=== PATIENT | female | born 1955 | race Two or more races ===

== ENCOUNTER 2020-04-28 19:39 | Inpatient (IN) | payer MEDICAID ==
[~2020-04-28] VITALS: Ht 170.2 cm; Wt 87.7 kg
[2020-04-28] MEDS ORDERED: ACETAMINOPHEN 325 MG TAB PO ONE (20:00)
[2020-04-28] MEDS ORDERED: DOXYCYCLINE 100MG/250ML 250 ML IV ONE (20:00)
[2020-04-28] MEDS ORDERED: DexAMETHasone SOD PHOS 10MG/1ML VIAL INJ IV ONE (20:00)
[2020-04-28] MEDS ORDERED: SODIUM CHLORIDE 0.9% 500 ML IV ONE (20:15)
[2020-04-28 21:20] LABS: Basophils # (auto) 0 10 ^3/uL (0-0.2); Basophils % (auto) 0.2 % (0.0-2.0); Eosinophils # (auto) 0 10 ^3/uL (0-0.8); Eosinophils % (auto) 0.1 % (0.0-7.0); Hematocrit 36.2 % (36.0-46.0); Hemoglobin 12.7 g/dL (12.2-16.2); Lymphocytes # (auto) 0.9 10 ^3/uL (0.4-5.4); Lymphocytes % (auto) 9.4 % (10.0-50.0); Mean Corpuscular Hemoglobin 30.9 pg (28.0-32.0); Mean Corpuscular Volume 88.3 fL (80.0-100.0); Monocytes # (auto) 0.5 10 ^3/uL (0-1.3); Monocytes % (auto) 5.4 % (0.0-12.0); Neutrophils % (auto) 84.9 % (37.0-80.0); Red Cell Distribution Width 12.5 % (11.8-14.3); White Blood Cell 9.4 10^3/uL (4.4-10.8)
[2020-04-28 21:31] LABS: Chloride 101 mmol/L (98-107); Potassium 4.1 mmol/L (3.5-5.1); Sodium 134 mmol/L (136-145)
[2020-04-28 21:49] LABS: Alanine Aminotransferase 30 U/L (13-56); Albumin 2.8 g/dL (3.4-5.0); Alkaline Phosphatase 93 U/L (45-117); Anion Gap 7 (5-15); Aspartate Aminotransferase 23 U/L (15-37); BUN/Creatinine Ratio 17.4; Bilirubin, Total 0.3 mg/dL (0.2-1.0); Blood Urea Nitrogen 16 mg/dL (7-18); Calcium 8.5 mg/dL (8.5-10.1); Carbon Dioxide 26 mmol/L (21-32); GFR African American 79 mL/min; GFR Non-African American 65 mL/min; Glucose 180 mg/dL (74-106); Total Protein 7.8 g/dL (6.4-8.2)
[2020-04-28 21:57] LABS: INR 0.96 (0.9-1.15); Partial Thromboplastin Time 32.3 sec (23.0-31.2)
[2020-04-29] MEDS ORDERED: MORPHINE SULFATE INJECTION 2 MG/ML SYRG IV PRN (01:00)
[2020-04-29] MEDS ORDERED: ACETAMINOPHEN 500 MG TAB PO PRN (01:00)
[2020-04-29] MEDS ORDERED: NITROGLYCERIN 0.4 MG SL TAB SL PRN (01:00)
[2020-04-29] MEDS ORDERED: ONDANSETRON HCL 4 MG/2 ML VIAL IV PRN (01:00)
[2020-04-29] MEDS ORDERED: DEXTROSE (50%) 50ML SYRG IV PRN (01:00)
[2020-04-29 01:35] LABS: Magnesium 2.1 mg/dL (1.6-2.6)
[2020-04-29 01:46] LABS: CRP High Sensitivity 17.6 mg/dL (< 0.3)
[2020-04-29] MEDS: ACCU-CHEK COMFORT CURVE STRIP VI SCH ×4 (06:34→21:30)
[2020-04-29] MEDS: InsuLIN REG 1unit/0.01ml Soln (100units/ml) SC SCH ×4 (06:35→21:30)
[2020-04-29] MEDS ORDERED: LOSARTAN POTASSIUM 50 MG TAB PO SCH (10:00)
[2020-04-29] MEDS: DOXYCYCLINE 100MG/250ML 250 ML IV SCH ×2 (10:12→22:00)
[2020-04-29] MEDS: DexAMETHasone SOD PHOS 10MG/1ML VIAL INJ IV SCH (10:12)
[2020-04-29] MEDS: ZINC SULFATE 220mg CAP or TAB PO SCH (10:12)
[2020-04-29] MEDS: CHOLECALCIFEROL (VITD3) 2,000 UNIT CAP/TAB PO SCH (10:12)
[2020-04-29] MEDS: FAMOTIDINE 20 MG TAB PO SCH ×2 (10:12→22:00)
[2020-04-29] MEDS: ASCORBIC ACID 1,000 MG TAB PO SCH (10:12)
[2020-04-29] MEDS: ENOXAPARIN SOD 40 MG/0.4 ML SYRINGE SC SCH ×2 (10:13→22:00)
[2020-04-29] MEDS ORDERED: REMDESIVIR PER PHARMACY 0 ML IV SCH (14:30)
[2020-04-29] MEDS ORDERED: FUROSEMIDE 20 MG/2 ML VIAL IV ONE (14:30)
[2020-04-29] MEDS ORDERED: POTASSIUM CHL 10 Meq TABLET PO ONE (14:30)
[2020-04-29 22:00] VITALS: BP 139/76
[2020-04-29] MEDS ORDERED: ATORVASTATIN 20 MG TAB PO SCH (22:00)
[2020-04-29] MEDS ORDERED: LOSA-39 PO (23:33)
[2020-04-29] MEDS ORDERED: CARB100C3 PO (23:33)
[2020-04-29] MEDS ORDERED: GLIP5TAB12 PO (23:33)
[2020-04-30] VITALS: BP 139/76
[2020-04-30] MEDS: ACCU-CHEK COMFORT CURVE STRIP VI SCH ×4 (06:11→21:46)
[2020-04-30] MEDS: InsuLIN REG 1unit/0.01ml Soln (100units/ml) SC SCH ×4 (06:17→21:47)
[2020-04-30 08:00] VITALS: BP 133/67
[2020-04-30 08:42] LABS: Basophils # (auto) 0 10 ^3/uL (0-0.2); Basophils % (auto) 0.1 % (0.0-2.0); Eosinophils # (auto) 0.1 10 ^3/uL (0-0.8); Eosinophils % (auto) 0.8 % (0.0-7.0); Hematocrit 34.8 % (36.0-46.0); Hemoglobin 12.3 g/dL (12.2-16.2); Lymphocytes # (auto) 1.4 10 ^3/uL (0.4-5.4); Lymphocytes % (auto) 18.6 % (10.0-50.0); Mean Corpuscular Hemoglobin 31.4 pg (28.0-32.0); Mean Corpuscular Hgb Conc. 35.3 g/dL (32.0-36.0); Mean Corpuscular Volume 88.7 fL (80.0-100.0); Monocytes # (auto) 0.6 10 ^3/uL (0-1.3); Monocytes % (auto) 7.5 % (0.0-12.0); Neutrophils # (auto) 5.4 10 ^3/uL (1.6-8.6); Nucleated Red Blood Cells % 0.1 %; Red Blood Cells 3.92 10^6/uL (4.0-5.20); Red Cell Distribution Width 12.3 % (11.8-14.3); White Blood Cell 7.4 10^3/uL (4.4-10.8)
[2020-04-30 09:15] LABS: Potassium 4.1 mmol/L (3.5-5.1)
[2020-04-30 09:25] LABS: Albumin 2.5 g/dL (3.4-5.0); BUN/Creatinine Ratio 36.4; Bilirubin, Total 0.2 mg/dL (0.2-1.0); Calcium 8.6 mg/dL (8.5-10.1); Total Protein 7.3 g/dL (6.4-8.2)
[2020-04-30] MEDS: ZINC SULFATE 220mg CAP or TAB PO SCH (09:34)
[2020-04-30] MEDS: DOXYCYCLINE 100MG/250ML 250 ML IV SCH ×2 (09:34→21:46)
[2020-04-30] MEDS: FUROSEMIDE 20 MG/2 ML VIAL IV SCH (09:34)
[2020-04-30] MEDS: DexAMETHasone SOD PHOS 10MG/1ML VIAL INJ IV SCH (09:34)
[2020-04-30] MEDS: CHOLECALCIFEROL (VITD3) 2,000 UNIT CAP/TAB PO SCH (09:35)
[2020-04-30] MEDS: ENOXAPARIN SOD 40 MG/0.4 ML SYRINGE SC SCH ×2 (09:35→21:46)
[2020-04-30] MEDS: POTASSIUM CHL 10 Meq TABLET PO SCH (09:35)
[2020-04-30] MEDS: ASCORBIC ACID 1,000 MG TAB PO SCH (09:35)
[2020-04-30] MEDS: FAMOTIDINE 20 MG TAB PO SCH ×2 (09:35→21:46)
[2020-04-30 11:05] LABS: Cholesterol 189 mg/dL (< 200); HDL Cholesterol 56 mg/dL (40-59); LDL Cholesterol 100 mg/dL (< 100); Triglycerides 217 mg/dL (< 150)
[2020-04-30] MEDS ORDERED: REMDESIVIR 200 MG in NS 210ml LOADING DOSE ADULT IV ONE (15:00)
[2020-04-30 16:00] VITALS: BP 136/70
[2020-04-30] MEDS ORDERED: SODIUM CHLORIDE 0.9% 1,000 ML IV SCH (17:15)
[2020-04-30] MEDS: carBAMazepine 200 MG TAB PO SCH (21:46)
[2020-04-30] MEDS: ATORVASTATIN 20 MG TAB PO SCH (21:46)
[2020-05-01] VITALS: BP 153/80
[2020-05-01] MEDS: TEMAZEPAM 15 MG CAP PO PRN ×2 (00:51→22:20)
[2020-05-01] MEDS: ACCU-CHEK COMFORT CURVE STRIP VI SCH ×4 (06:11→22:20)
[2020-05-01] MEDS: InsuLIN REG 1unit/0.01ml Soln (100units/ml) SC SCH ×4 (06:11→22:23)
[2020-05-01 08:00] VITALS: BP 143/75
[2020-05-01 08:44] LABS: Albumin 2.6 g/dL (3.4-5.0); BUN/Creatinine Ratio 38.2; Calcium 8.9 mg/dL (8.5-10.1)
[2020-05-01 09:13] LABS: Bilirubin, Total 0.3 mg/dL (0.2-1.0); Total Protein 7.3 g/dL (6.4-8.2)
[2020-05-01] MEDS: DexAMETHasone SOD PHOS 10MG/1ML VIAL INJ IV SCH (09:44)
[2020-05-01] MEDS: ASPirin 81 mg TAB PO SCH (09:45)
[2020-05-01] MEDS: ZINC SULFATE 220mg CAP or TAB PO SCH (09:45)
[2020-05-01] MEDS: POTASSIUM CHL 10 Meq TABLET PO SCH (09:45)
[2020-05-01] MEDS: FUROSEMIDE 20 MG/2 ML VIAL IV SCH (09:45)
[2020-05-01] MEDS: DOXYCYCLINE 100MG/250ML 250 ML IV SCH ×2 (09:45→22:19)
[2020-05-01] MEDS: CHOLECALCIFEROL (VITD3) 2,000 UNIT CAP/TAB PO SCH (09:46)
[2020-05-01] MEDS: ASCORBIC ACID 1,000 MG TAB PO SCH (09:46)
[2020-05-01] MEDS: ENOXAPARIN SOD 40 MG/0.4 ML SYRINGE SC SCH ×2 (09:46→22:20)
[2020-05-01] MEDS: FAMOTIDINE 20 MG TAB PO SCH ×2 (09:46→22:19)
[2020-05-01] MEDS: carBAMazepine 200 MG TAB PO SCH ×2 (09:46→22:20)
[2020-05-01] MEDS ORDERED: SALINE 0.65 % NASAL SPRAY 45ML BOTTLE EACHNOSTRI PRN (11:30)
[2020-05-01 16:00] VITALS: BP 127/73
[2020-05-01] MEDS: REMDESIVIR 100 MG in SODIUM CHL 0.9% 250 ML IV SCH (16:09)
[2020-05-01] MEDS: ATORVASTATIN 20 MG TAB PO SCH (22:20)
[2020-05-01] MEDS: INSULIN LANTUS (GLARGINE) 1 /0.01ml (100units/ml) SC SCH (22:27)
[2020-05-02] VITALS: BP 148/78
[2020-05-02] MEDS: ACCU-CHEK COMFORT CURVE STRIP VI SCH ×4 (06:17→22:12)
[2020-05-02] MEDS: InsuLIN REG 1unit/0.01ml Soln (100units/ml) SC SCH ×4 (06:17→22:09)
[2020-05-02 08:00] VITALS: BP 136/77
[2020-05-02 08:28] LABS: Potassium 3.9 mmol/L (3.5-5.1)
[2020-05-02 08:38] LABS: Albumin 2.6 g/dL (3.4-5.0); BUN/Creatinine Ratio 40.7; Calcium 8.8 mg/dL (8.5-10.1)
[2020-05-02 08:41] LABS: Bilirubin, Total 0.2 mg/dL (0.2-1.0); Total Protein 7.1 g/dL (6.4-8.2)
[2020-05-02] MEDS: ALBUTEROL SULF HFA 90MCG INH 200DOSE IN PRN (09:06)
[2020-05-02] MEDS: DexAMETHasone SOD PHOS 10MG/1ML VIAL INJ IV SCH (09:29)
[2020-05-02] MEDS: FUROSEMIDE 20 MG/2 ML VIAL IV SCH (09:30)
[2020-05-02] MEDS: ASPirin 81 mg TAB PO SCH (09:30)
[2020-05-02] MEDS: FAMOTIDINE 20 MG TAB PO SCH ×2 (09:30→22:10)
[2020-05-02] MEDS: ZINC SULFATE 220mg CAP or TAB PO SCH (09:30)
[2020-05-02] MEDS: POTASSIUM CHL 10 Meq TABLET PO SCH (09:30)
[2020-05-02] MEDS: DOXYCYCLINE 100MG/250ML 250 ML IV SCH ×2 (09:30→22:10)
[2020-05-02] MEDS: CHOLECALCIFEROL (VITD3) 2,000 UNIT CAP/TAB PO SCH (09:31)
[2020-05-02] MEDS: ENOXAPARIN SOD 40 MG/0.4 ML SYRINGE SC SCH ×2 (09:31→22:11)
[2020-05-02] MEDS: ASCORBIC ACID 1,000 MG TAB PO SCH (09:31)
[2020-05-02] MEDS: carBAMazepine 200 MG TAB PO SCH ×2 (09:31→22:11)
[2020-05-02 16:00] VITALS: BP 129/69
[2020-05-02] MEDS: REMDESIVIR 100 MG in SODIUM CHL 0.9% 250 ML IV SCH (16:30)
[2020-05-02 18:54] VITALS: BP 129/69
[2020-05-02] MEDS: INSULIN LANTUS (GLARGINE) 1 /0.01ml (100units/ml) SC SCH (22:09)
[2020-05-02] MEDS: TEMAZEPAM 15 MG CAP PO PRN (22:10)
[2020-05-02] MEDS: ATORVASTATIN 20 MG TAB PO SCH (22:11)
[2020-05-03] VITALS: BP 149/77
[2020-05-03] MEDS: InsuLIN REG 1unit/0.01ml Soln (100units/ml) SC SCH ×3 (06:16→17:32)
[2020-05-03] MEDS: ACCU-CHEK COMFORT CURVE STRIP VI SCH ×3 (06:17→17:33)
[2020-05-03] MEDS: ALBUTEROL SULF HFA 90MCG INH 200DOSE IN PRN (06:18)
[2020-05-03 07:27] LABS: Basophils # (auto) 0 10 ^3/uL (0-0.2); Basophils % (auto) 0.3 % (0.0-2.0); Eosinophils # (auto) 0.2 10 ^3/uL (0-0.8); Hematocrit 35.6 % (36.0-46.0); Hemoglobin 12.5 g/dL (12.2-16.2); Lymphocytes # (auto) 2.9 10 ^3/uL (0.4-5.4); Mean Corpuscular Hemoglobin 30.4 pg (28.0-32.0); Mean Corpuscular Hgb Conc. 35.1 g/dL (32.0-36.0); Mean Corpuscular Volume 86.7 fL (80.0-100.0); Monocytes # (auto) 0.7 10 ^3/uL (0-1.3); Monocytes % (auto) 9.3 % (0.0-12.0); Neutrophils % (auto) 51.4 % (37.0-80.0); Red Blood Cells 4.11 10^6/uL (4.0-5.20); Red Cell Distribution Width 12.3 % (11.8-14.3); White Blood Cell 7.7 10^3/uL (4.4-10.8)
[2020-05-03 07:39] LABS: Potassium 4.1 mmol/L (3.5-5.1)
[2020-05-03 07:48] LABS: Albumin 2.6 g/dL (3.4-5.0); BUN/Creatinine Ratio 38.5
[2020-05-03 07:52] LABS: Bilirubin, Total 0.2 mg/dL (0.2-1.0); Total Protein 7.1 g/dL (6.4-8.2)
[2020-05-03 08:00] VITALS: BP 147/72
[2020-05-03] MEDS: FUROSEMIDE 20 MG/2 ML VIAL IV SCH (08:37)
[2020-05-03] MEDS: DexAMETHasone SOD PHOS 10MG/1ML VIAL INJ IV SCH (08:37)
[2020-05-03] MEDS: ASPirin 81 mg TAB PO SCH (08:37)
[2020-05-03] MEDS: carBAMazepine 200 MG TAB PO SCH (08:37)
[2020-05-03] MEDS: ASCORBIC ACID 1,000 MG TAB PO SCH (08:38)
[2020-05-03] MEDS: ZINC SULFATE 220mg CAP or TAB PO SCH (08:38)
[2020-05-03] MEDS: POTASSIUM CHL 10 Meq TABLET PO SCH (08:38)
[2020-05-03] MEDS: FAMOTIDINE 20 MG TAB PO SCH (08:39)
[2020-05-03] MEDS: CHOLECALCIFEROL (VITD3) 2,000 UNIT CAP/TAB PO SCH (08:39)
[2020-05-03] MEDS ORDERED: ASPI-378 PO (11:07)
[2020-05-03] MEDS ORDERED: DOXY-286 PO (11:07)
[2020-05-03] MEDS ORDERED: ZINC220T6 PO (11:07)
[2020-05-03] MEDS ORDERED: BUDE2SUS3 IN (11:07)
[2020-05-03] MEDS ORDERED: ASCO10003 PO (11:07)
[2020-05-03] MEDS ORDERED: FAMO20TA10 PO (11:07)
[2020-05-03] MEDS ORDERED: ALBUAER3 IN (11:07)
[2020-05-03] MEDS ORDERED: DEX4T PO (11:07)
[2020-05-03] MEDS ORDERED: CHOL1CAP47 PO (11:07)
[2020-05-03] MEDS: ENOXAPARIN SOD 40 MG/0.4 ML SYRINGE SC SCH (13:53)
[2020-05-03] MEDS: REMDESIVIR 100 MG in SODIUM CHL 0.9% 250 ML IV SCH (15:00)
[2020-05-03] MEDS: DOXYCYCLINE 100MG/250ML 250 ML IV SCH (15:25)
[2020-05-03 16:00] VITALS: BP 126/73
== END 2020-05-03 19:50 | disposition home or self-care (01) | DRG 720 ==
LOC: ER 19:39 → TELE 19:40 → TELE-WESTW 04-29 21:05
PROVIDERS: ADMIT Nurse Practitioner; ATTEND Internal Medicine
PROC: XW033E5 Introduction of Remdesivir Anti-infective into Peripheral Vein, Percutaneous Approach, New Technology Group 5 (ICD-10-PCS; principal; 2020-04-30)
DX: A41.89 Other specified sepsis (principal); U07.1 COVID-19; J96.01 Acute respiratory failure with hypoxia; J12.82 Pneumonia due to coronavirus disease 2019; E44.0 Moderate protein-calorie malnutrition; E66.9 Obesity, unspecified; E11.9 Type 2 diabetes mellitus without complications; I10 Essential (primary) hypertension; G50.0 Trigeminal neuralgia; E78.5 Hyperlipidemia, unspecified; Z68.30 Body mass index [BMI] 30.0-30.9, adult
CPT/HCPCS: 36415; 36600; 71045; 80053; 80061; 82306; 82728; 82805; 82962; 83036; 83605; 83615; 83735; 83880; 84443; 84484; 85025; 85379; 85610; 85730; 86141; 86850; 86900; 86901; 87040; 87426; 93005; 94640; 96360; G0378; J1100; J1815; J3490

== ENCOUNTER 2020-11-15 18:36 | Emergency (ER) | payer MEDICAID ==
[~2020-11-15] VITALS: Ht 170.2 cm; Wt 86.2 kg
[~2020-11-15 18:36] MED LIST: ALBUAER3 IN; ASCO10003 PO; ASPI-378 PO; BUDE2SUS3 IN; CARB100C3 PO; CHOL1CAP47 PO; DEX4T PO; DOXY-286 PO; FAMO20TA10 PO; GLIP5TAB12 PO; LOSA-39 PO; ZINC220T6 PO
[2020-11-15 19:34] LABS: Basophils # (auto) 0 10 ^3/uL (0-0.2); Basophils % (auto) 0.4 % (0.0-2.0); Eosinophils # (auto) 0.2 10 ^3/uL (0-0.8); Eosinophils % (auto) 3.1 % (0.0-7.0); Hematocrit 43.3 % (36.0-46.0); Hemoglobin 14.8 g/dL (12.2-16.2); Lymphocytes # (auto) 2.3 10 ^3/uL (0.4-5.4); Mean Corpuscular Hemoglobin 30.1 pg (28.0-32.0); Mean Corpuscular Hgb Conc. 34.2 g/dL (32.0-36.0); Monocytes # (auto) 0.5 10 ^3/uL (0-1.3); Monocytes % (auto) 7.1 % (0.0-12.0); Neutrophils # (auto) 4.2 10 ^3/uL (1.6-8.6); Neutrophils % (auto) 58.4 % (37.0-80.0); Red Blood Cells 4.92 10^6/uL (4.0-5.20); Red Cell Distribution Width 13.2 % (11.8-14.3); White Blood Cell 7.3 10^3/uL (4.4-10.8)
[2020-11-15 19:51] LABS: Albumin 3.6 g/dL (3.4-5.0); Calcium 8.5 mg/dL (8.5-10.1)
[2020-11-15 19:53] LABS: BUN/Creatinine Ratio 17.6
[2020-11-15 19:56] LABS: Bilirubin, Total 0.2 mg/dL (0.2-1.0); Total Protein 7.2 g/dL (6.4-8.2)
[2020-11-15 20:24] LABS: INR 0.94 (0.9-1.15)
[2020-11-15] MEDS ORDERED: IOHEXOL 350 MG/ML 100ML IJ ONE (21:24)
[2020-11-15 23:27] VITALS: BP 140/70
== END 2020-11-15 23:50 | disposition home or self-care (01) ==
LOC: ER 18:37
DX: I82.401 Acute embolism and thrombosis of unspecified deep veins of right lower extremity (principal); E11.9 Type 2 diabetes mellitus without complications; E78.5 Hyperlipidemia, unspecified
CPT/HCPCS: 36415; 71275; 80053; 84484; 85025; 85379; 85610; 93005; 93971; 99285; Q9967

== ENCOUNTER 2021-07-01 22:50 | Emergency (ER) | payer MEDICAID ==
[~2021-07-01] VITALS: Ht 170.2 cm; Wt 88.5 kg
[2021-07-01] MEDS ORDERED: ACETAMINOPHEN 500 MG TAB PO ONE (23:30)
[2021-07-02 00:07] LABS: Basophils # (auto) 0.1 10 ^3/uL (0-0.2); Basophils % (auto) 1.3 % (0.0-2.0); Eosinophils # (auto) 0.2 10 ^3/uL (0-0.8); Eosinophils % (auto) 2.3 % (0.0-7.0); Hematocrit 39.4 % (36.0-46.0); Hemoglobin 13.6 g/dL (12.2-16.2); Lymphocytes # (auto) 2.3 10 ^3/uL (0.4-5.4); Lymphocytes % (auto) 27.2 % (10.0-50.0); Mean Corpuscular Hemoglobin 31.4 pg (28.0-32.0); Mean Corpuscular Hgb Conc. 34.6 g/dL (32.0-36.0); Mean Corpuscular Volume 90.6 fL (80.0-100.0); Monocytes # (auto) 0.4 10 ^3/uL (0-1.3); Monocytes % (auto) 5.2 % (0.0-12.0); Neutrophils # (auto) 5.4 10 ^3/uL (1.6-8.6); Nucleated Red Blood Cells % 0.1 %; Red Blood Cells 4.35 10^6/uL (4.0-5.20); Red Cell Distribution Width 12.5 % (11.8-14.3); White Blood Cell 8.5 10^3/uL (4.4-10.8)
[2021-07-02 00:27] LABS: Potassium 3.8 mmol/L (3.5-5.1)
[2021-07-02 00:47] LABS: Albumin 3.9 g/dL (3.4-5.0); BUN/Creatinine Ratio 31.7; Bilirubin, Total 0.4 mg/dL (0.2-1.0); Calcium 8.4 mg/dL (8.5-10.1); Total Protein 7.4 g/dL (6.4-8.2)
[2021-07-02] MEDS ORDERED: HYDROmorphone HCL 2 MG/ML VL IV ONE (01:15)
[2021-07-02] MEDS ORDERED: ONDANSETRON HCL 4 MG/2 ML VIAL IV ONE (01:15)
[2021-07-02 05:00] VITALS: BP 155/76
[2021-07-02 05:17] LABS: Urine Bacteria FEW /hpf (None Seen); Urine Blood Negative /uL (Negative); Urine Hyaline Cast FEW /lpf (0 - 2); Urine Mucus FEW (None Seen); Urine Specific Gravity 1.031 (1.001-1.035); Urine WBC 6 /hpf (0 - 5)
[2021-07-02] MEDS ORDERED: PERCOT PO (06:00)
== END 2021-07-02 06:12 | disposition home or self-care (01) ==
LOC: ER 22:53
DX: M79.604 Pain in right leg (principal); E11.9 Type 2 diabetes mellitus without complications; E78.5 Hyperlipidemia, unspecified
CPT/HCPCS: 36415; 71045; 80053; 81001; 84484; 85025; 93005; 93971; 96374; 96375; 99285; J1170; J2405

== ENCOUNTER 2021-12-26 09:45 | Inpatient (IN) | payer MEDICARE, MEDICAID ==
[2021-12-26] VITALS (10 sets, daily range): BP systolic 132–168; BP diastolic 67–84
[~2021-12-26] VITALS: Ht 170.2 cm; Wt 88.0 kg
[~2021-12-26 09:45] MED LIST changes: +PERCOT PO
[2021-12-26] MEDS ORDERED: MORPHINE SULFATE 4 MG/ML SYR/VIAL IV ONE (10:00)
[2021-12-26] MEDS ORDERED: ASPirin 81 mg TAB PO ONE (10:00)
[2021-12-26] MEDS ORDERED: HEPARIN 1,000 UNITS/ml 1ML VIAL IV ONE (10:00)
[2021-12-26] MEDS ORDERED: HEPARIN SODIUM (PORCINE) 5000 UNITS/ML 1ML VIAL ONE (10:05)
[2021-12-26] MEDS ORDERED: VERAPAMIL 2.5MG/ML INJ 2ML VIAL IV ONE (10:06)
[2021-12-26] MEDS ORDERED: ONDANSETRON HCL 4 MG/2 ML VIAL ONE ×2 (10:06→10:07)
[2021-12-26] MEDS ORDERED: fentaNYL CITRATE 100 MCG/2 ML VL ONE (10:06)
[2021-12-26] MEDS ORDERED: ANGIOMAX 250 MG VIAL IV ONE (10:07)
[2021-12-26] MEDS ORDERED: SODIUM CHL 0.9% 50 ML ONE (10:08)
[2021-12-26] MEDS ORDERED: LIDOCAINE 2%HCL (LOCAL ANESTH.) INJ 20ML MDV ONE (10:08)
[2021-12-26] MEDS ORDERED: MIDAZOLAM HCL 2MG/2ML 2ml VIAL (1mg/ml) ONE (10:08)
[2021-12-26] MEDS ORDERED: ONDANSETRON HCL 4 MG/2 ML VIAL IV ONE (10:15)
[2021-12-26] MEDS ORDERED: IODIXANOL 320MG/ML 100ML BTL IV ONE (10:33)
[2021-12-26 10:36] LABS: Basophils # (auto) 0 10 ^3/uL (0-0.2); Basophils % (auto) 0.5 % (0.0-2.0); Eosinophils # (auto) 0 10 ^3/uL (0-0.8); Eosinophils % (auto) 0.4 % (0.0-7.0); Hematocrit 42.9 % (36.0-46.0); Hemoglobin 14.5 g/dL (12.2-16.2); Lymphocytes # (auto) 1.3 10 ^3/uL (0.4-5.4); Lymphocytes % (auto) 15.2 % (10.0-50.0); Mean Corpuscular Hgb Conc. 33.9 g/dL (32.0-36.0); Mean Corpuscular Volume 91.7 fL (80.0-100.0); Monocytes # (auto) 0.2 10 ^3/uL (0-1.3); Monocytes % (auto) 2.5 % (0.0-12.0); Neutrophils # (auto) 7.1 10 ^3/uL (1.6-8.6); Neutrophils % (auto) 81.4 % (37.0-80.0); Red Blood Cells 4.68 10^6/uL (4.0-5.20); Red Cell Distribution Width 12.6 % (11.8-14.3); White Blood Cell 8.7 10^3/uL (4.4-10.8)
[2021-12-26 10:49] LABS: Calcium 9.1 mg/dL (8.5-10.1); Magnesium 2.2 mg/dL (1.6-2.6); Potassium 4.4 mmol/L (3.5-5.1)
[2021-12-26] MEDS ORDERED: MORPHINE SULFATE INJ 2 MG/ml SYRG IV PRN (11:00)
[2021-12-26] MEDS ORDERED: NITROGLYCERIN 0.4 MG SL TAB SL PRN (11:00)
[2021-12-26 11:11] LABS: BUN/Creatinine Ratio 31.4; Bilirubin, Total 0.2 mg/dL (0.2-1.0); Total Protein 7.5 g/dL (6.4-8.2)
[2021-12-26] MEDS ORDERED: OXYCODONE W/ ACETAMINOPHEN 5/325MG TABLET PO PRN (14:30)
[2021-12-26] MEDS ORDERED: ONDANSETRON HCL 4 MG/2 ML VIAL IV PRN (14:30)
[2021-12-26] MEDS ORDERED: DEXTROSE (50%) 50ML SYRG IV PRN (14:30)
[2021-12-26] MEDS ORDERED: LOSARTAN POTASSIUM 50 MG TAB PO ONE (14:30)
[2021-12-26] MEDS ORDERED: LABETALOL HCL 5 MG/ML 4ML SYRINGE IV PRN (14:45)
[2021-12-26] MEDS: SODIUM CHLORIDE 0.9% 1,000 ML IV SCH (15:05)
[2021-12-26] MEDS ORDERED: CARB400T3 PO (15:58)
[2021-12-26] MEDS ORDERED: DULA1INJ SC (15:58)
[2021-12-26] MEDS: ACCU-CHEK COMFORT CURVE STRIP VI SCH ×2 (17:11→22:10)
[2021-12-26] MEDS: InsuLIN REG 1unit/0.01ml Soln (100units/ml) SC SCH ×2 (17:13→22:00)
[2021-12-26] MEDS ORDERED: ATORVASTATIN 20 MG TAB PO SCH (22:00)
[2021-12-26] MEDS: FAMOTIDINE 20 MG TAB PO SCH (22:10)
[2021-12-26 22:34] LABS: Urine Bacteria NONE SEEN /hpf (None Seen); Urine Blood Negative /uL (Negative); Urine Mucus FEW (None Seen); Urine Specific Gravity 1.042 (1.001-1.035); Urine WBC 2 /hpf (0 - 5)
[2021-12-27 05:00] VITALS: BP 156/68
[2021-12-27 06:16] LABS: Basophils # (auto) 0 10 ^3/uL (0-0.2); Basophils % (auto) 0.4 % (0.0-2.0); Eosinophils # (auto) 0.2 10 ^3/uL (0-0.8); Eosinophils % (auto) 3.2 % (0.0-7.0); Hematocrit 39.6 % (36.0-46.0); Hemoglobin 13.4 g/dL (12.2-16.2); Lymphocytes # (auto) 1.8 10 ^3/uL (0.4-5.4); Lymphocytes % (auto) 29.4 % (10.0-50.0); Mean Corpuscular Hemoglobin 31.2 pg (28.0-32.0); Mean Corpuscular Hgb Conc. 33.9 g/dL (32.0-36.0); Monocytes # (auto) 0.6 10 ^3/uL (0-1.3); Monocytes % (auto) 8.8 % (0.0-12.0); Neutrophils # (auto) 3.7 10 ^3/uL (1.6-8.6); Neutrophils % (auto) 58.2 % (37.0-80.0); Red Cell Distribution Width 12.3 % (11.8-14.3); White Blood Cell 6.3 10^3/uL (4.4-10.8)
[2021-12-27 06:26] LABS: BUN/Creatinine Ratio 28.6; Calcium 8.8 mg/dL (8.5-10.1)
[2021-12-27] MEDS: InsuLIN REG 1unit/0.01ml Soln (100units/ml) SC SCH ×2 (06:51→11:30)
[2021-12-27] MEDS: ACCU-CHEK COMFORT CURVE STRIP VI SCH ×2 (06:52→12:20)
[2021-12-27 07:04] LABS: Potassium 4.8 mmol/L (3.5-5.1)
[2021-12-27 08:00] VITALS: BP 147/73
[2021-12-27] MEDS: FAMOTIDINE 20 MG TAB PO SCH (09:26)
[2021-12-27] MEDS: SODIUM CHLORIDE 0.9% 1,000 ML IV SCH (09:34)
[2021-12-27] MEDS ORDERED: amLODIPine BESYLATE 5 MG TAB PO SCH (10:00)
[2021-12-27] MEDS ORDERED: LOSARTAN POTASSIUM 50 MG TAB PO SCH (10:00)
[2021-12-27] MEDS ORDERED: ASPirin 81 mg TAB PO SCH (10:00)
[2021-12-27 13:00] VITALS: BP 154/64
[2021-12-27] MEDS ORDERED: ASPI-325 PO (14:24)
[2021-12-27] MEDS ORDERED: AMLO-496 PO (14:24)
[2021-12-27] MEDS ORDERED: ATOR20TA50 PO (14:24)
[2021-12-27 17:00] VITALS: BP 139/73
== END 2021-12-27 17:43 | disposition home or self-care (01) | DRG 282 ==
LOC: ER 09:45 → CATH 1 10:16 → TELE 10:51 → TELE-WESTW 13:17
PROVIDERS: ADMIT Internal Medicine; ATTEND Internal Medicine
PROC: 4A023N7 Measurement of Cardiac Sampling and Pressure, Left Heart, Percutaneous Approach (ICD-10-PCS; principal; 2021-12-26)
PROC: B211YZZ Fluoroscopy of Multiple Coronary Arteries using Other Contrast (ICD-10-PCS; 2021-12-26)
PROC: 4A033BC Measurement of Arterial Pressure, Coronary, Percutaneous Approach (ICD-10-PCS; 2021-12-26)
DX: I21.3 ST elevation (STEMI) myocardial infarction of unspecified site (principal); Z20.822 Contact with and (suspected) exposure to COVID-19; E11.9 Type 2 diabetes mellitus without complications; E66.9 Obesity, unspecified; E78.5 Hyperlipidemia, unspecified; I10 Essential (primary) hypertension; I25.10 Atherosclerotic heart disease of native coronary artery without angina pectoris; Z68.30 Body mass index [BMI] 30.0-30.9, adult; Z79.82 Long term (current) use of aspirin; Z79.899 Other long term (current) drug therapy; Z90.710 Acquired absence of both cervix and uterus
CPT/HCPCS: 36415; 71045; 80048; 80053; 81001; 82962; 83036; 83735; 84484; 85025; 85379; 93970; 96374; 96375; 99152; 99291; G0378; J1815; J2250; J2405; Q9967